=== PATIENT | female | born 1960 | race African-American/Black ===

== ENCOUNTER 2018-06-25 05:17 | Inpatient (IN) | payer OTHER ==
[~2018-06-25] VITALS: Ht 167.6 cm; Wt 112.5 kg
[2018-06-25] VITALS (11 sets, daily range): BP systolic 102–149; BP diastolic 64–86
[~2018-06-25 05:17] MED LIST: ADVAIR 100-501 EACH INH; LIPITOR20 MG ORAL; VISTARIL10 MG ORAL
[2018-06-25] MEDS ORDERED: Bacitracin 50000 Units Vial ONE (07:03)
[2018-06-25] MEDS ORDERED: NeoSporin Gu Irrig 1ml Amp IRRIG ONE (07:03)
--- NOTE | 2018-06-25 07:07 | Pre-Procedure Note/Attestation ---
Pre-Procedure Note/Attestation Complete Prior to Procedure Planned Procedure: right Procedure Narrative: End Stage Degenerative Joint Disease, Right Knee For Right Knee Re-surface Indications for Procedure Pre-Operative Diagnosis: End Stage Degenerative Joint Disease, Right Knee Attestation I attest that I discussed the nature of the procedure; its benefits; risks and complications; and alternatives (and the risks and benefits of such alternatives ), prior to the procedure, with the patient (or the patient's legal automotive leasing sales representative). I attest that, if there was a reasonable possibility of needing a blood transfusion, the patient (or the patient's legal automotive leasing sales representative) was given the [facility] standardized written summary, pursuant to the Dax Katheryn Blood Safety Act ([place] Health and Safety Code # 1645, as amended). I attest that I re-evaluated the patient just prior to the surgery and that there has been no change in the patient's H&P, except as documented below: Raman Cordova Jun 25, 2018 07:07
[2018-06-25] MEDS ORDERED: Midazolam 2mg/2ml Inj ONE (07:15)
[2018-06-25] MEDS ORDERED: fentaNYL 100 mcg/2 mL IV ONE (07:16)
[2018-06-25] MEDS ORDERED: Lidocaine 1% MPF 10mg/ml 5ml ONE (07:18)
[2018-06-25] MEDS ORDERED: Propofol 200mg/20ml IV ONE (07:18)
[2018-06-25] MEDS ORDERED: Sodium Chloride 10ml vial INJ ONE (07:18)
[2018-06-25] MEDS ORDERED: Sterile Water For Irrig 2000ml IRRIG ONE (07:30)
[2018-06-25] MEDS ORDERED: LR 1000ml ONE (07:30)
[2018-06-25] MEDS ORDERED: Sterile Water Irrig 1000ml IRRIG ONE (07:30)
[2018-06-25] MEDS ORDERED: NS Irrig 1000ml ONE (07:30)
[2018-06-25] MEDS ORDERED: ePHEDrine 50mg/ml Inj ONE (07:52)
[2018-06-25] MEDS ORDERED: LR 1000ml 1,000 ML IVLG SCH (08:18)
[2018-06-25] MEDS ORDERED: DiphenhydrAMINE 50mg/ml Inj IVP PRN (08:30)
[2018-06-25] MEDS ORDERED: HYDROmorphone 1mg/ml Carpuject IVP PRN (08:30)
[2018-06-25] MEDS ORDERED: Meperidine 50mg/ml Inj(FOR RIGORS ONLY) IVP PRN (08:30)
[2018-06-25] MEDS ORDERED: LORazepam Inj 2mg/ml 1ml IV PRN (08:30)
--- NOTE | 2018-06-25 08:32 | Anethesia Preoperative Eval ---
Anesthesia Pre-op PMH/ROS General Date of Evaluation: Jun 25, 2018 Time of Evaluation: 07:20 Anesthesiologist: Alpesh ASA Score: ASA 3 Mallampati Score Class I : Soft palate, uvula, fauces, pillars visible Class II: Soft palate, uvula, fauces visible Class III: Soft palate, base of uvula visible Class IV: Only hard plate visible Mallampati Classification: Class II Surgeon: Zachery Diagnosis: Degenerative Joint Disease Surgical Procedure: Right total knee arthroplasty Family History: no anesthesia problems Allergies: Coded Allergies: CITRIC ACID (Verified Allergy, Severe, 06/20/18) ITCHING ASPIRIN (Verified Adverse Reaction, Severe, 06/25/18) CANNOT TAKE ASPIRIN DUE TO BARIATRIC SLEEVE SURGERY Medications: see eMAR Patient NPO?: Yes NPO Date: Jun 24, 2018 NPO Time: 2029 Past Medical History Cardiovascular: Denies: HTN, CAD, OR, valve dz, arrhythmia, other Pulmonary: Reports: asthma; Denies: COPD, PAN, other Gastrointestinal/Genitourinary: Denies: GERD, CRI, ESRD, other Neurologic/Psychiatric: Reports: depression/anxiety - Panic attacks; Denies: dementia, CVA, TIA, other Endocrine: Denies: DM, hypothyroidism, steroids, other HEENT: Denies: cataract (L), cataract (R), glaucoma, TELLER (L), TELLER (R), other Hematology/Immune: Denies: anemia, DVT, bleeding disorder, other Musculoskeletal/Integumentary: Reports: DJD Other: obesity PMH Narrative: Asthma, obesity, DJD, anxiety, panic attacks, hypercholesterolemia PSxH Narrative: Carpal tunnel release, knee scope, Gastric band, umbilical herniorrhaphy Anesthesia Pre-op Phys. Exam Physician Exam Last Vital Signs Date Time Temp Pulse Resp B/P (MAP) Pulse Ox O2 Delivery O2 Flow Rate FiO2 06/25/18 06:06 97.7 65 20 129/81 (97) 98 06/25/18 06:02 Room Air Constitutional: NAD Neurologic: CN 2-12 intact Cardiovascular: RRR, no M/R/G Respiratory: CTA Gastrointestinal: S/NT/ND Airway Exam Mallampati Score: Class II MO: full ROM: full Teeth: intact Anesthesia Pre-op A/P Labs WNL Urine Test Test 06/25/18 05:35 Urine HCG, Qualitative Negative (NEGATIVE) Studies Pre-op Studies: EKG - NSR Risk Assessment & Plan Assessment: Class 3 obese, asthmatic female for right TKA. Plan: GA, LMA. Discussed regional (spinal) anesthesia vs GA. Patient has decided that GA is her preference. Status Change Before Surgery: No Pre-Antibiotics Drug: Ancef 2 gm Given Within 1 Hr of Incision: Yes Time Given: 07:45 Dax Betts MD Jun 25, 2018 08:32
--- NOTE | 2018-06-25 08:33 | Immediate Post-Op Evaluation ---
Immediate Post-Op Evalulation Immediate Post-Op Evalulation Procedure: Right total knee arthroplasty Date of Evaluation: Jun 25, 2018 Time of Evaluation: 10:25 IV Fluids: 1750 Estimated Blood Loss: 50 Urinary Output: 50 Blood Pressure Systolic: 141 Blood Pressure Diastolic: 72 Pulse Rate: 104 Respiratory Rate: 22 O2 Sat by Pulse Oximetry: 99 Temperature (Fahrenheit): 97.6 Pain Score (1-10): 0 Nausea: No Vomiting: No Complications No complication Patient Status: reacts, patent, none Hydration Status: adequate Drug: Ancef 2 gm Given Within 1 Hr of Incision: Yes Time Given: 07:45 Dax Betts MD Jun 25, 2018 08:33
[2018-06-25] MEDS ORDERED: Naloxone 0.4mg/ml Inj ONE (10:08)
[2018-06-25] MEDS ORDERED: HYDROmorphone 1mg/ml Carpuject SUBQ PRN (10:15)
[2018-06-25] MEDS ORDERED: HYDROcodone/Acetamin 7.5/325 tab ORAL PRN (10:15)
[2018-06-25] MEDS ORDERED: Norco 5mg/325mg tab ORAL PRN (10:15)
--- NOTE | 2018-06-25 10:19 | Operative Note - PDOC ---
Operative Note Operative Note Chief Complaint: Right Knee Pain Pre-op Diagnosis: End Stage Degenerative Joint Disease, Right Knee Procedure: Right Total Knee Resurface Post-op Diagnosis: same as pre-op Operative Findings: consistent w/pre-op dx studies Surgeon: Zachery Aviation Manager: LUCIE Cordova Anesthesiologist: Alpesh Anesthesia: general Specimen: yes Complications: none Condition: stable Estimated Blood Loss: minimal Drains: hemovac Tourniquet time: 83 - min Implant(s) used?: Yes - Buster Natural Knee Raman Cordova Jun 25, 2018 10:19
[2018-06-25] MEDS ORDERED: Rate Change PCA 1 Each MISC PRN (10:30)
[2018-06-25] MEDS ORDERED: Naloxone 0.4mg/ml Inj IVP PRN (10:30)
[2018-06-25] MEDS ORDERED: LORazepam 1mg tab ORAL PRN (10:30)
[2018-06-25] MEDS ORDERED: PCA HYDROmorphone 1mg/ml 30 ML IV PRN (10:30)
--- NOTE | 2018-06-25 11:19 | Diagnostic Imaging Report ---
Indications: Postoperative satisfactory post total knee arthroplasty for knee pain Technique: Two views of the right knee Comparison: None Findings: Two postoperative views of the right knee demonstrate total knee arthroplasty, good anatomic alignment of the prosthesis. There is a surgical drain in place. There is postsurgical soft tissue air. Overlying skin blanca. Impression: Postoperative right knee, no unusual features.
--- NOTE | 2018-06-25 13:51 | General Progress Note ---
Assessment/Plan Assessment/Plan End Stage Degenerative Joint Disease, Right Knee Right Knee Re-surface hypertension PLAN 1. incentive spirometry 2. Lovenox 3. PT evaluation and therapy 4. Hydration 5. Pain management 6. discharge once stable with outpatient follow up Subjective Allergies: Coded Allergies: CITRIC ACID (Verified Allergy, Severe, 06/20/18) ITCHING ASPIRIN (Verified Adverse Reaction, Severe, 06/25/18) CANNOT TAKE ASPIRIN DUE TO BARIATRIC SLEEVE SURGERY Subjective asked to follow post op Objective Last 24 Hour Vital Signs Date Time Temp Pulse Resp B/P (MAP) Pulse Ox O2 Delivery O2 Flow Rate FiO2 06/25/18 11:26 97.5 84 18 115/67 99 Nasal Cannula 3 06/25/18 11:08 97.5 85 18 126/85 99 Nasal Cannula 3 06/25/18 11:02 18 06/25/18 10:57 85 18 121/80 99 Nasal Cannula 3 06/25/18 10:47 18 06/25/18 10:39 95 18 122/75 99 Nasal Cannula 3 06/25/18 10:32 18 06/25/18 10:30 95 18 132/73 99 Simple Mask 8 06/25/18 10:25 96 18 139/86 99 Simple Mask 8 06/25/18 10:21 104 22 99 06/25/18 10:20 102 18 141/72 99 Simple Mask 8 06/25/18 10:15 97.6 108 18 149/74 99 Simple Mask 8 06/25/18 06:06 97.7 65 20 129/81 (97) 98 06/25/18 06:02 Room Air Laboratory Tests 06/25/18 05:35: Urine HCG, Qualitative Negative Height (Feet): 5 Height (Inches): 6.00 Weight (Pounds): 235 Objective WDWN NAD clear breath sounds bilaterally without rhonchi or wheeze [id number] without MRG NABS nontender no HSM no CCE nonfocal Jacob Hinton MD Jun 25, 2018 13:51
[2018-06-25] MEDS: D5 1/2NS w/KCl 20mEq 1,000 ML IV SCH (15:05)
[2018-06-25] MEDS: ceFAZolin sod 1 GM in D5W 55 ML IV SCH ×2 (15:05→23:13)
[2018-06-25] MEDS: Docusate 100mg cap ORAL SCH ×2 (15:05→17:54)
[2018-06-25] MEDS ORDERED: PCA Education Pamphlet MISC ONE (16:00)
--- NOTE | 2018-06-25 16:00 | Operative Note - Dictated ---
DATE OF OPERATION: 06/25/2018 SURGEON: Raman Bingham M.D. MANUFACTURING MACHINE OPERATOR: Vinny Zepeda ANESTHESIA: General endotracheal. ANESTHESIOLOGIST: Dr. Betts. 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 POSTOPERATIVE DIAGNOSIS: Tricompartmental traumatic arthritis, right knee with significant valgus and external rotational deformity lacking 10 degrees of flexion and 10 degrees of extension. OPERATIVE PROCEDURE: Total knee resurfacing arthroplasty using a Natural-Knee with an ingrowth size 2 femoral component and a size 2 tibial base plate with a congruent 9 mm polyethylene insert. Patellar resurfacing was with a 7 mm all polyethylene size 0 patellar component with cement. The patient also had a lateral capsular and ligamentous release and rebalancing with patella realignment. DESCRIPTION OF OPERATIVE PROCEDURE: The patient was prepped and draped supine on the operating table after induction of satisfactory general anesthesia. The leg was positioned so that the hip could not externally rotate because of a lateral thigh ulcer. A support was placed on the table to facilitate maintenance of the knee in flexion. During the performance of the procedure, the pelvis was derotated using a 5-pound sandbag under the right hip. A medial parapatellar incision was made beginning from the quads expanse coursing along the medial patella along the medial border of the infrapatellar ligament and tibial tuberosity. Incision was carried down through skin and subcutaneous tissue exposing the extensor apparatus. A medial parapatellar incision was made. The incision was carried in the capsule along the medial margin of the infrapatellar ligament to the tibial tuberosity superiorly. The quads was split centrally. A lateral release was done so that the patella could be turned 180 degrees so that its articular surface faced the operating field. The posteromedial capsular ligaments were released and recess using a periosteal elevator. The lateral collateral ligament was completely freed from the lateral femoral epicondyle, which was deformed with a defect laterally and posteriorly. The iliotibial band was also released. Synovium was removed from the patella ligament and the posterior periarticular surfaces to allow definition of the margins of the patella. A patellar cutting jig was inserted to remove a minimal amount of articular surface and cancellous bone. The cut surface was planed and then anchoring holes were made for a size 07 mm all-polyethylene patella. The knee was then flexed and the remnants of the anterior cruciate ligament were removed. The femoral medullary jig was then inserted and the distal femoral medullary canal was drilled. An outrigger was used to place the distal femoral extension jig and to normalize rotation. The weightbearing axis was reproduced as was seen on the preoperative x-rays. A nickel cut was taken from the distal surface of the femur. The femur was then sized and anterior, posterior, and chamfer cuts were made for a size 2 femur. The trial femoral component fit well with good contact on all surfaces. The tibia was then subluxed forward and remnants of the medial and lateral meniscus were removed as well as release of the posterior cruciate ligament to the tibial weightbearing surface. The main attachment was left attached to the posterior tibia. The tibial surface was then incised and the tibial alignment jig was placed over the anterior tibia secured at the ankle. The tibial cut was measured for depth, slope, and rotation. When all three had been determined, the final set pins were placed and the proximal tibia was divided over a cutting block. A size 2 tibial base plate was templated. An alignment juan david was used to check alignment and rotation. The final holes were placed for the anchoring screws in the tibial base plate and then a trial reduction was done after the central cruciate punch was placed. A size 2 base plate with a 9 mm congruent polyethylene reproduced full extension of the knee with physiologic valgus, smooth tracking, and good stability to 95 to 100 degrees. At that point, the tibial base plate was implanted with 2 APR compression screws, 40 mm. The polyethylene insert was tapped into place. There was no gap. The femoral component was then reduced and the position, alignment, and stability were again checked. There was full extension with flexion of 95 degrees. There was good collateral stability and good tracking. The patella was then cemented into place with a size 0. All excess cement was removed as the cement cured. The tourniquet was released and bleeders were coagulated along the lateral release site and along the medial capsular incision. The medial capsule was closed with interrupted sutures of #1 Vicryl. The lateral release site was left open and a medium Hemovac without suction was placed in the defect with lateral release. The subcutaneous tissue and skin were closed in separate layers. Blood loss was estimated at 100 mL. The patient was placed in a bulky compression dressing and then returned to recovery room in good condition. Raman Bingham M.D. DR: Shy JOB#: [id number] CC:
[2018-06-25] MEDS: Docusate Sod/Senna tab ORAL SCH (17:52)
[2018-06-25] MEDS: Acetaminophen 500mg (ES) tab ORAL SCH (17:53)
[2018-06-25] MEDS: Advair 100/50 Inhaler - 14 dose INH SCH ×2 (18:00→20:48)
[2018-06-25] MEDS: PCA shift volume MISC SCH (19:00)
[2018-06-25] MEDS: Atorvastatin 20mg tab ORAL SCH (20:24)
[2018-06-26] VITALS (7 sets, daily range): BP systolic 96–146; BP diastolic 50–65
[2018-06-26] MEDS: D5 1/2NS w/KCl 20mEq 1,000 ML IV SCH ×2 (03:34→17:40)
[2018-06-26] MEDS: ceFAZolin sod 1 GM in D5W 55 ML IV SCH ×3 (06:52→22:52)
[2018-06-26] MEDS: PCA shift volume MISC SCH ×2 (07:12→19:00)
--- NOTE | 2018-06-26 07:50 | 48 Hour Post Anesthesia Eval ---
Post Anesthesia Evaluation Procedure: Right total knee arthroplasty Date of Evaluation: Jun 26, 2018 Time of Evaluation: 07:36 Blood Pressure Systolic: 97 0: 50 Pulse Rate: 84 Respiratory Rate: 18 Temperature (Fahrenheit): 98.5 O2 Sat by Pulse Oximetry: 95 Airway: patent Nausea: No Vomiting: No Pain Intensity: 3 Hydration Status: adequate Cardiopulmonary Status: Stable Mental Status/LOC: patient returned to baseline Follow-up Care/Observations: 0 Post-Anesthesia Complications: 0 Follow-up care needed: N/A Tony Richard MD Jun 26, 2018 07:50
[2018-06-26 08:09] LABS: BASOPHILS % (AUTO) 0.3 % (0.0-2.0); HEMATOCRIT 28.1 % (37.0-47.0); LYMPHOCYTES % (AUTO) 12.9 % (20.0-45.0); MEAN CORPUSCULAR VOLUME 84 FL (80-99); MONOCYTES % (AUTO) 5.7 % (1.0-10.0); NEUTROPHILS % (AUTO) 81.1 % (45.0-75.0); PLATELET COUNT 200 K/UL (150-450); RED BLOOD COUNT 3.34 M/UL (4.20-5.40); RED CELL DISTRIBUTION WIDTH 12.6 % (11.6-14.8); WHITE BLOOD COUNT 7.7 K/UL (4.8-10.8)
[2018-06-26] MEDS: Docusate 100mg cap ORAL SCH ×4 (09:00→17:55)
[2018-06-26] MEDS: Acetaminophen 500mg (ES) tab ORAL SCH ×5 (09:00→17:56)
[2018-06-26] MEDS: Docusate Sod/Senna tab ORAL SCH ×3 (09:00→17:55)
--- NOTE | 2018-06-26 10:06 | General Surgery Progress Note ---
General Surgery-Progress Note Subjective Procedure Performed Right Total Knee Resurface Objective Last 24 Hour Vital Signs Date Time Temp Pulse Resp B/P (MAP) Pulse Ox O2 Delivery O2 Flow Rate FiO2 06/26/18 09:18 98.9 86 16 96/60 (72) 90 06/26/18 09:17 Room Air 06/26/18 09:17 Room Air 06/26/18 08:27 Room Air Room Air 06/26/18 08:00 18 06/26/18 08:00 98.9 86 16 96/60 (72) 90 06/26/18 07:50 84 18 95 06/26/18 05:40 98.5 84 18 97/50 (66) 95 06/26/18 04:00 18 06/26/18 00:00 18 06/26/18 00:00 97.9 87 17 110/65 (80) 95 06/25/18 21:00 Room Air Room Air 06/25/18 20:47 Room Air 21 06/25/18 20:44 76 20 97 Room Air 21 06/25/18 20:00 18 06/25/18 20:00 98.0 73 18 140/79 (99) 98 06/25/18 20:00 98.0 73 18 140/79 (99) 98 06/25/18 18:23 97.4 06/25/18 16:00 97.4 77 16 102/64 (77) 96 06/25/18 11:26 97.5 84 18 115/67 99 Nasal Cannula 3 06/25/18 11:08 97.5 85 18 126/85 99 Nasal Cannula 3 06/25/18 11:02 97.5 06/25/18 11:02 97.5 06/25/18 11:02 18 06/25/18 10:57 85 18 121/80 99 Nasal Cannula 3 06/25/18 10:47 18 06/25/18 10:39 95 18 122/75 99 Nasal Cannula 3 06/25/18 10:32 18 06/25/18 10:30 95 18 132/73 99 Simple Mask 8 06/25/18 10:25 96 18 139/86 99 Simple Mask 8 06/25/18 10:21 104 22 99 06/25/18 10:20 102 18 141/72 99 Simple Mask 8 06/25/18 10:15 97.6 108 18 149/74 99 Simple Mask 8 I&O Intake and Output 06/25/18 06/26/18 19:00 07:00 Intake Total 2175 ml 980 ml Output Total 100 ml 570 ml Balance 2075 ml 410 ml Intake Oral 100 ml IV Total 2175 ml 880 ml Output Urine Total 50 ml 450 ml Drainage Total 120 ml Estimated Blood Loss 50 ml Dressing: dry Wound: clean Drains: hemovac Laboratory Tests Test 06/26/18 07:20 White Blood Count 7.7 K/UL (4.8-10.8) Red Blood Count 3.34 M/UL (4.20-5.40) L Hemoglobin 9.0 G/DL (12.0-16.0) L Hematocrit 28.1 % (37.0-47.0) L Mean Corpuscular Volume 84 FL (80-99) Mean Corpuscular Hemoglobin 27.0 PG (27.0-31.0) Mean Corpuscular Hemoglobin Concent 32.1 G/DL (32.0-36.0) Red Cell Distribution Width 12.6 % (11.6-14.8) Platelet Count 200 K/UL (150-450) Mean Platelet Volume 7.1 FL (6.5-10.1) Neutrophils (%) (Auto) 81.1 % (45.0-75.0) H Lymphocytes (%) (Auto) 12.9 % (20.0-45.0) L Monocytes (%) (Auto) 5.7 % (1.0-10.0) Eosinophils (%) (Auto) 0.0 % (0.0-3.0) Basophils (%) (Auto) 0.3 % (0.0-2.0) Troponin I 0.000 ng/mL (0.000-0.056) Imaging Post Op x-ray Right Knee: good alignment of implants Additional Comments Drain output 120 cc overnight. PT / OT in progress. Raman Greenwood Jun 26, 2018 10:06
[2018-06-26] MEDS: Enoxaparin 40mg Inj SUBQ SCH (11:06)
--- NOTE | 2018-06-26 16:01 | General Progress Note ---
Assessment/Plan Assessment/Plan End Stage Degenerative Joint Disease, Right Knee Right Knee Re-surface hypertension PLAN 1. incentive spirometry 2. Lovenox 3. PT evaluation and therapy 4. ECG and troponin 5. Pain management 6. discharge once stable with outpatient follow up Subjective Allergies: Coded Allergies: CITRIC ACID (Verified Allergy, Severe, 06/20/18) ITCHING ASPIRIN (Verified Adverse Reaction, Severe, 06/25/18) CANNOT TAKE ASPIRIN DUE TO BARIATRIC SLEEVE SURGERY Subjective had chest pain Objective Last 24 Hour Vital Signs Date Time Temp Pulse Resp B/P (MAP) Pulse Ox O2 Delivery O2 Flow Rate FiO2 06/26/18 14:47 99.3 06/26/18 12:00 99.3 85 18 119/65 (83) 90 06/26/18 12:00 18 06/26/18 10:10 Room Air Room Air 06/26/18 09:18 98.9 86 16 96/60 (72) 90 06/26/18 09:17 Room Air 06/26/18 09:17 Room Air 06/26/18 08:27 Room Air Room Air 06/26/18 08:00 18 06/26/18 08:00 98.9 86 16 96/60 (72) 90 06/26/18 07:50 84 18 95 06/26/18 05:40 98.5 84 18 97/50 (66) 95 06/26/18 04:00 18 06/26/18 00:00 18 06/26/18 00:00 97.9 87 17 110/65 (80) 95 06/25/18 21:00 Room Air Room Air 06/25/18 20:47 Room Air 21 06/25/18 20:44 76 20 97 Room Air 21 06/25/18 20:00 18 06/25/18 20:00 98.0 73 18 140/79 (99) 98 06/25/18 20:00 98.0 73 18 140/79 (99) 98 Intake and Output 06/25/18 06/26/18 19:00 07:00 Intake Total 2175 ml 980 ml Output Total 100 ml 570 ml Balance 2075 ml 410 ml Intake Oral 100 ml IV Total 2175 ml 880 ml Output Urine Total 50 ml 450 ml Drainage Total 120 ml Estimated Blood Loss 50 ml Laboratory Tests 06/26/18 07:20: White Blood Count 7.7, Red Blood Count 3.34L, Hemoglobin 9.0L, Hematocrit 28.1L , Mean Corpuscular Volume 84, Mean Corpuscular Hemoglobin 27.0, Mean Corpuscular Hemoglobin Concent 32.1, Red Cell Distribution Width 12.6, Platelet Count 200, Mean Platelet Volume 7.1, Neutrophils (%) (Auto) 81.1H, Lymphocytes ( %) (Auto) 12.9L, Monocytes (%) (Auto) 5.7, Eosinophils (%) (Auto) 0.0, Basophils (%) (Auto) 0.3, Troponin I 0.000 Height (Feet): 5 Height (Inches): 6.00 Weight (Pounds): 235 Objective WDWN NAD clear breath sounds bilaterally without rhonchi or wheeze [id number] without MRG NABS nontender no HSM no CCE nonfocal Jacob Hinton MD Jun 26, 2018 16:01
[2018-06-26] MEDS: Advair 100/50 Inhaler - 14 dose INH SCH (18:00)
[2018-06-26] MEDS: Atorvastatin 20mg tab ORAL SCH (20:31)
[2018-06-27] VITALS: BP 125/76
[2018-06-27 04:00] VITALS: BP 133/79
[2018-06-27 06:27] LABS: BASOPHILS % (AUTO) 0.4 % (0.0-2.0); EOSINOPHILS % (AUTO) 0.1 % (0.0-3.0); HEMOGLOBIN 8.3 G/DL (12.0-16.0); LYMPHOCYTES % (AUTO) 19.4 % (20.0-45.0); MEAN CORPUSCULAR VOLUME 84 FL (80-99); MONOCYTES % (AUTO) 9.7 % (1.0-10.0); NEUTROPHILS % (AUTO) 70.4 % (45.0-75.0); PLATELET COUNT 196 K/UL (150-450); RED CELL DISTRIBUTION WIDTH 12.8 % (11.6-14.8); WHITE BLOOD COUNT 7.1 K/UL (4.8-10.8)
[2018-06-27] MEDS: ceFAZolin sod 1 GM in D5W 55 ML IV SCH ×2 (06:33→15:28)
[2018-06-27] MEDS: D5 1/2NS w/KCl 20mEq 1,000 ML IV SCH ×2 (06:33→20:33)
[2018-06-27 06:40] LABS: ANION GAP 6 mmol/L (5-15); BLOOD UREA NITROGEN 8 mg/dL (7-18); CALCIUM 8.3 MG/DL (8.5-10.1); CARBON DIOXIDE 29 MMOL/L (21-32); CHLORIDE 104 MMOL/L (98-107); CREATININE 0.9 MG/DL (0.55-1.30); POTASSIUM 4.1 MMOL/L (3.5-5.1); SODIUM 139 MMOL/L (136-145)
[2018-06-27] MEDS: PCA shift volume MISC SCH ×2 (07:13→19:00)
[2018-06-27 08:00] VITALS: BP 126/80
[2018-06-27] MEDS: Docusate Sod/Senna tab ORAL SCH ×2 (08:37→17:24)
[2018-06-27] MEDS: Docusate 100mg cap ORAL SCH ×3 (08:37→17:24)
[2018-06-27] MEDS: Acetaminophen 500mg (ES) tab ORAL SCH ×3 (08:37→17:25)
[2018-06-27] MEDS: Enoxaparin 40mg Inj SUBQ SCH (08:40)
[2018-06-27] MEDS: Advair 100/50 Inhaler - 14 dose INH SCH ×2 (09:00→18:00)
[2018-06-27] MEDS ORDERED: Naloxone 0.4mg/ml Inj IVP PRN (09:24)
[2018-06-27] MEDS ORDERED: PCA HYDROmorphone 1mg/ml 30 ML IV PRN (09:26)
[2018-06-27] MEDS ORDERED: Rate Change PCA 1 Each MISC PRN (09:30)
[2018-06-27] MEDS ORDERED: LORazepam 1mg tab ORAL PRN (10:30)
--- NOTE | 2018-06-27 11:28 | General Progress Note ---
Assessment/Plan Assessment/Plan End Stage Degenerative Joint Disease, Right Knee Right Knee Re-surface hypertension PLAN 1. incentive spirometry 2. Lovenox 3. PT evaluation and therapy 4. ECG and troponin reviewed 5. Pain management 6. discharge once stable with outpatient follow up Subjective Allergies: Coded Allergies: CITRIC ACID (Verified Allergy, Severe, 06/20/18) ITCHING ASPIRIN (Verified Adverse Reaction, Severe, 06/25/18) CANNOT TAKE ASPIRIN DUE TO BARIATRIC SLEEVE SURGERY Subjective no further chest pain Objective Last 24 Hour Vital Signs Date Time Temp Pulse Resp B/P (MAP) Pulse Ox O2 Delivery O2 Flow Rate FiO2 06/27/18 10:44 99.4 06/27/18 10:14 18 06/27/18 10:14 18 06/27/18 09:51 99.4 06/27/18 09:28 99.4 06/27/18 09:12 Room Air Room Air 06/27/18 09:11 Room Air 06/27/18 09:11 Room Air 06/27/18 08:18 98.7 06/27/18 08:00 18 06/27/18 08:00 100.3 112 21 126/80 (95) 93 06/27/18 04:00 98.7 106 18 133/79 (97) 96 06/27/18 04:00 18 06/27/18 00:00 18 06/27/18 00:00 98.9 100 18 125/76 (92) 95 06/26/18 20:21 Room Air Room Air 06/26/18 20:20 Room Air 21 06/26/18 20:20 Room Air 21 06/26/18 20:00 99.3 98 17 146/55 (85) 96 06/26/18 20:00 17 06/26/18 16:00 99.2 86 18 115/63 (80) 97 06/26/18 16:00 18 06/26/18 14:47 99.3 06/26/18 12:00 99.3 85 18 119/65 (83) 90 06/26/18 12:00 18 Intake and Output 06/26/18 06/27/18 18:59 06:59 Intake Total 1572.5 ml 1380 ml Output Total 1450 ml 135 ml Balance 122.5 ml 1245 ml Intake Oral 675 ml 480 ml IV Total 897.5 ml 900 ml Output Urine Total 1150 ml Drainage Total 300 ml 135 ml # Voids 3 3 Laboratory Tests 06/27/18 05:20: White Blood Count 7.1, Red Blood Count 3.10L, Hemoglobin 8.3L, Hematocrit 26.0L , Mean Corpuscular Volume 84, Mean Corpuscular Hemoglobin 26.8L, Mean Corpuscular Hemoglobin Concent 32.0, Red Cell Distribution Width 12.8, Platelet Count 196, Mean Platelet Volume 7.8, Neutrophils (%) (Auto) 70.4, Lymphocytes (% ) (Auto) 19.4L, Monocytes (%) (Auto) 9.7, Eosinophils (%) (Auto) 0.1, Basophils (%) (Auto) 0.4, Sodium Level 139, Potassium Level 4.1, Chloride Level 104, Carbon Dioxide Level 29, Anion Gap 6, Blood Urea Nitrogen 8, Creatinine 0.9, Estimat Glomerular Filtration Rate > 60, Glucose Level 116H, Calcium Level 8.3L Height (Feet): 5 Height (Inches): 6.00 Weight (Pounds): 248 Objective WDWN NAD clear breath sounds bilaterally without rhonchi or wheeze [id number] without MRG NABS nontender no HSM no CCE nonfocal Jacob Hinton MD Jun 27, 2018 11:28
[2018-06-27 12:00] VITALS: BP 104/76
[2018-06-27] MEDS: Milk of Magnesia 30ml Ud ORAL PRN (12:27)
--- NOTE | 2018-06-27 12:58 | General Surgery Progress Note ---
General Surgery-Progress Note Subjective Procedure Performed Right Total Knee Resurface Symptoms: improved Objective Last 24 Hour Vital Signs Date Time Temp Pulse Resp B/P (MAP) Pulse Ox O2 Delivery O2 Flow Rate FiO2 06/27/18 12:00 98.4 98 19 104/76 (85) 06/27/18 12:00 19 06/27/18 10:44 99.4 06/27/18 10:14 18 06/27/18 10:14 18 06/27/18 09:51 99.4 06/27/18 09:28 99.4 06/27/18 09:12 Room Air Room Air 06/27/18 09:11 Room Air 06/27/18 09:11 Room Air 06/27/18 08:18 98.7 06/27/18 08:00 18 06/27/18 08:00 100.3 112 21 126/80 (95) 93 06/27/18 04:00 98.7 106 18 133/79 (97) 96 06/27/18 04:00 18 06/27/18 00:00 18 06/27/18 00:00 98.9 100 18 125/76 (92) 95 06/26/18 20:21 Room Air Room Air 06/26/18 20:20 Room Air 21 06/26/18 20:20 Room Air 21 06/26/18 20:00 99.3 98 17 146/55 (85) 96 06/26/18 20:00 17 06/26/18 16:00 99.2 86 18 115/63 (80) 97 06/26/18 16:00 18 06/26/18 14:47 99.3 I&O Intake and Output 06/26/18 06/27/18 19:00 07:00 Intake Total 1572.5 ml 1380 ml Output Total 1450 ml 135 ml Balance 122.5 ml 1245 ml Intake Oral 675 ml 480 ml IV Total 897.5 ml 900 ml Output Urine Total 1150 ml Drainage Total 300 ml 135 ml # Voids 3 3 Dressing: dry Wound: clean Drains: hemovac Laboratory Tests Test 06/27/18 05:20 White Blood Count 7.1 K/UL (4.8-10.8) Red Blood Count 3.10 M/UL (4.20-5.40) L Hemoglobin 8.3 G/DL (12.0-16.0) L Hematocrit 26.0 % (37.0-47.0) L Mean Corpuscular Volume 84 FL (80-99) Mean Corpuscular Hemoglobin 26.8 PG (27.0-31.0) L Mean Corpuscular Hemoglobin Concent 32.0 G/DL (32.0-36.0) Red Cell Distribution Width 12.8 % (11.6-14.8) Platelet Count 196 K/UL (150-450) Mean Platelet Volume 7.8 FL (6.5-10.1) Neutrophils (%) (Auto) 70.4 % (45.0-75.0) Lymphocytes (%) (Auto) 19.4 % (20.0-45.0) L Monocytes (%) (Auto) 9.7 % (1.0-10.0) Eosinophils (%) (Auto) 0.1 % (0.0-3.0) Basophils (%) (Auto) 0.4 % (0.0-2.0) Sodium Level 139 MMOL/L (136-145) Potassium Level 4.1 MMOL/L (3.5-5.1) Chloride Level 104 MMOL/L (98-107) Carbon Dioxide Level 29 MMOL/L (21-32) Anion Gap 6 mmol/L (5-15) Blood Urea Nitrogen 8 mg/dL (7-18) Creatinine 0.9 MG/DL (0.55-1.30) Estimat Glomerular Filtration Rate > 60 mL/min (>60) Glucose Level 116 MG/DL (74-106) H Calcium Level 8.3 MG/DL (8.5-10.1) L Additional Comments Patient up with PT today. Still high drain output. Dr. Hinton following. 5/5 strength in right leg. Raman Cordova Jun 27, 2018 12:58
[2018-06-27 16:00] VITALS: BP 108/77
--- NOTE | 2018-06-27 17:48 | Cardiology Report ---
APPROVED REPORT EKG Measurement Heart [id number] Normal sinus rhythm Normal ECG
[2018-06-27 20:00] VITALS: BP 130/76
[2018-06-27] MEDS: Atorvastatin 20mg tab ORAL SCH (20:53)
[2018-06-28] VITALS: BP 102/66
[2018-06-28] MEDS: ceFAZolin sod 1 GM in D5W 55 ML IV SCH ×2 (00:02→07:30)
[2018-06-28 04:00] VITALS: BP 112/66
[2018-06-28] MEDS: PCA shift volume MISC SCH (07:31)
[2018-06-28 08:00] VITALS: BP 137/67
[2018-06-28] MEDS: Docusate Sod/Senna tab ORAL SCH ×2 (08:50→18:00)
[2018-06-28] MEDS: Docusate 100mg cap ORAL SCH ×3 (08:53→18:00)
[2018-06-28] MEDS: Enoxaparin 40mg Inj SUBQ SCH (08:53)
[2018-06-28] MEDS: Acetaminophen 500mg (ES) tab ORAL SCH (09:00)
[2018-06-28] MEDS: Advair 100/50 Inhaler - 14 dose INH SCH ×2 (09:00→18:00)
--- NOTE | 2018-06-28 09:20 | General Progress Note ---
Assessment/Plan Assessment/Plan End Stage Degenerative Joint Disease, Right Knee Right Knee Re-surface hypertension PLAN 1. incentive spirometry 2. Lovenox 3. PT evaluation and therapy 4. ECG and troponin reviewed 5. Pain management 6. discharge once stable with outpatient follow up Subjective Allergies: Coded Allergies: CITRIC ACID (Verified Allergy, Severe, 06/20/18) ITCHING ASPIRIN (Verified Adverse Reaction, Severe, 06/25/18) CANNOT TAKE ASPIRIN DUE TO BARIATRIC SLEEVE SURGERY Subjective discussed dc planning Objective Last 24 Hour Vital Signs Date Time Temp Pulse Resp B/P (MAP) Pulse Ox O2 Delivery O2 Flow Rate FiO2 06/28/18 09:09 Room Air 21 06/28/18 09:09 Room Air 21 06/28/18 08:00 99.7 108 20 137/67 (90) 98 06/28/18 04:00 98.9 98 20 112/66 (81) 98 06/28/18 04:00 20 06/28/18 00:00 20 06/28/18 00:00 98.3 99 20 102/66 (78) 97 06/27/18 21:00 Room Air 06/27/18 20:27 Room Air 21 06/27/18 20:27 Room Air 21 06/27/18 20:00 20 06/27/18 20:00 99.1 106 20 130/76 (94) 96 06/27/18 17:55 98.6 06/27/18 16:00 20 06/27/18 16:00 98.6 98 20 108/77 (87) 95 06/27/18 12:00 98.4 98 19 104/76 (85) 06/27/18 12:00 19 06/27/18 10:44 99.4 06/27/18 10:14 18 06/27/18 10:14 18 06/27/18 09:51 99.4 06/27/18 09:28 99.4 Intake and Output 06/27/18 06/28/18 18:59 06:59 Intake Total 1290 ml 392.5 ml Output Total 80 ml 55 ml Balance 1210 ml 337.5 ml Intake Oral 635 ml IV Total 655 ml 392.5 ml Drainage Total 80 ml 55 ml # Voids 2 3 # Bowel Movements 2 Height (Feet): 5 Height (Inches): 6.00 Weight (Pounds): 248 Objective WDWN NAD clear breath sounds bilaterally without rhonchi or wheeze [id number] without MRG NABS nontender no HSM no CCE nonfocal Jacob Hinton MD Jun 28, 2018 09:20
[2018-06-28] MEDS ORDERED: Acetaminophen 500mg (ES) tab ORAL PRN (09:38)
[2018-06-28] MEDS: D5 1/2NS w/KCl 20mEq 1,000 ML IV SCH ×3 (09:46→22:30)
[2018-06-28] MEDS: Norco 5mg/325mg tab ORAL PRN ×2 (11:33→16:22)
[2018-06-28 11:52] VITALS: BP 132/76
--- NOTE | 2018-06-28 12:23 | General Surgery Progress Note ---
General Surgery-Progress Note Subjective Procedure Performed Right Total Knee Resurface Symptoms: improved Objective Last 24 Hour Vital Signs Date Time Temp Pulse Resp B/P (MAP) Pulse Ox O2 Delivery O2 Flow Rate FiO2 06/28/18 11:52 100.6 95 20 132/76 (94) 96 06/28/18 09:09 Room Air 21 06/28/18 09:09 Room Air 21 06/28/18 09:00 Room Air 06/28/18 08:00 99.7 108 20 137/67 (90) 98 06/28/18 08:00 21 06/28/18 04:00 98.9 98 20 112/66 (81) 98 06/28/18 04:00 20 06/28/18 00:00 20 06/28/18 00:00 98.3 99 20 102/66 (78) 97 06/27/18 21:00 Room Air 06/27/18 20:27 Room Air 21 06/27/18 20:27 Room Air 21 06/27/18 20:00 20 06/27/18 20:00 99.1 106 20 130/76 (94) 96 06/27/18 17:55 98.6 06/27/18 16:00 20 06/27/18 16:00 98.6 98 20 108/77 (87) 95 I&O Intake and Output 06/27/18 06/28/18 18:59 06:59 Intake Total 1290 ml 392.5 ml Output Total 80 ml 55 ml Balance 1210 ml 337.5 ml Intake Oral 635 ml IV Total 655 ml 392.5 ml Drainage Total 80 ml 55 ml # Voids 2 3 # Bowel Movements 2 Dressing: dry Wound: clean Drains: hemovac Additional Comments Drain output <50 cc. Drain removed. PT / OT continues. Patient will need DME (including front wheel walker, bedside commode and adjustable hospital bed) due to living conditions. Dr. Mary Jane alvarado. Raman Cordova Jun 28, 2018 12:23
[2018-06-28 15:22] LABS: HEMATOCRIT 25.1 % (37.0-47.0); HEMOGLOBIN 7.9 G/DL (12.0-16.0); MEAN CORPUSCULAR VOLUME 83 FL (80-99); PLATELET COUNT 207 K/UL (150-450); RED BLOOD COUNT 3.03 M/UL (4.20-5.40); RED CELL DISTRIBUTION WIDTH 12.2 % (11.6-14.8); WHITE BLOOD COUNT 7.5 K/UL (4.8-10.8)
[2018-06-28 15:26] LABS: NEUTROPHILS % (AUTO) 72.8 % (45.0-75.0)
[2018-06-28 15:27] LABS: BASOPHILS % (AUTO) 0.2 % (0.0-2.0); EOSINOPHILS % (AUTO) 0.3 % (0.0-3.0); MONOCYTES % (AUTO) 6.6 % (1.0-10.0)
[2018-06-28 16:00] VITALS: BP 115/74
[2018-06-28 20:00] VITALS: BP 117/56
[2018-06-28] MEDS: Atorvastatin 20mg tab ORAL SCH (20:52)
[2018-06-28] MEDS: HYDROcodone/Acetamin 10/325 tab ORAL PRN (20:53)
[2018-06-29] VITALS: BP 105/65
[2018-06-29] MEDS: Norco 5mg/325mg tab ORAL PRN ×3 (03:34→13:13)
[2018-06-29 04:00] VITALS: BP 146/81
[2018-06-29 08:00] VITALS: BP 112/72
[2018-06-29] MEDS: Advair 100/50 Inhaler - 14 dose INH SCH ×2 (08:50→18:00)
[2018-06-29] MEDS: Docusate 100mg cap ORAL SCH ×3 (09:14→18:00)
[2018-06-29] MEDS: Docusate Sod/Senna tab ORAL SCH ×2 (09:15→18:00)
[2018-06-29] MEDS: Enoxaparin 40mg Inj SUBQ SCH (09:17)
--- NOTE | 2018-06-29 09:36 | General Surgery Progress Note ---
General Surgery-Progress Note Subjective Procedure Performed Right Total Knee Resurface Symptoms: improved Objective Last 24 Hour Vital Signs Date Time Temp Pulse Resp B/P (MAP) Pulse Ox O2 Delivery O2 Flow Rate FiO2 06/29/18 08:50 Room Air 06/29/18 08:50 Room Air 21 06/29/18 08:00 99.1 99 18 112/72 (85) 99 06/29/18 04:00 99.1 99 20 146/81 (102) 98 06/29/18 00:00 98.7 99 20 105/65 (78) 97 06/28/18 21:30 Room Air 21 06/28/18 21:29 Room Air 21 06/28/18 21:00 Room Air 06/28/18 20:00 99.3 102 20 117/56 (76) 94 06/28/18 16:52 100.6 06/28/18 16:00 100.9 109 19 115/74 (88) 97 06/28/18 11:52 100.6 95 20 132/76 (94) 96 I&O Intake and Output 06/28/18 06/29/18 19:00 07:00 Intake Total 793 ml 780 ml Output Total 150 ml Balance 793 ml 630 ml Intake Oral 118 ml 480 ml IV Total 675 ml 300 ml Output Urine Total 150 ml # Voids 5 # Bowel Movements 1 Dressing: dry Wound: clean Drains: none Laboratory Tests Test 06/28/18 14:40 White Blood Count 7.5 K/UL (4.8-10.8) Red Blood Count 3.03 M/UL (4.20-5.40) L Hemoglobin 7.9 G/DL (12.0-16.0) L Hematocrit 25.1 % (37.0-47.0) L Mean Corpuscular Volume 83 FL (80-99) Mean Corpuscular Hemoglobin 26.0 PG (27.0-31.0) L Mean Corpuscular Hemoglobin Concent 31.3 G/DL (32.0-36.0) L Red Cell Distribution Width 12.2 % (11.6-14.8) Platelet Count 207 K/UL (150-450) Mean Platelet Volume 7.6 FL (6.5-10.1) Neutrophils (%) (Auto) 72.8 % (45.0-75.0) Lymphocytes (%) (Auto) 20.0 % (20.0-45.0) Monocytes (%) (Auto) 6.6 % (1.0-10.0) Eosinophils (%) (Auto) 0.3 % (0.0-3.0) Basophils (%) (Auto) 0.2 % (0.0-2.0) Additional Comments Patient ready for discharge to home AFTER hospital bed is in place in her home. Patient having low grade temps. Dr. Hinton followingRaman Lugo Jun 29, 2018 09:36
[2018-06-29 10:12] LABS: HEMATOCRIT 23.5 % (37.0-47.0); HEMOGLOBIN 7.5 G/DL (12.0-16.0); MEAN CORPUSCULAR VOLUME 83 FL (80-99); PLATELET COUNT 225 K/UL (150-450); RED BLOOD COUNT 2.83 M/UL (4.20-5.40); RED CELL DISTRIBUTION WIDTH 12.5 % (11.6-14.8); WHITE BLOOD COUNT 6.9 K/UL (4.8-10.8)
[2018-06-29 12:00] VITALS: BP 114/79
[2018-06-29 16:00] VITALS: BP 115/54
--- NOTE | 2018-06-29 17:13 | General Progress Note ---
Assessment/Plan Assessment/Plan End Stage Degenerative Joint Disease, Right Knee Right Knee Re-surface hypertension PLAN 1. incentive spirometry 2. Lovenox 3. PT evaluation and therapy 4. ECG and troponin reviewed 5. Pain management 6. discharge once bed is available Subjective Allergies: Coded Allergies: CITRIC ACID (Verified Allergy, Severe, 06/20/18) ITCHING ASPIRIN (Verified Adverse Reaction, Severe, 06/25/18) CANNOT TAKE ASPIRIN DUE TO BARIATRIC SLEEVE SURGERY Subjective plan to dc Objective Last 24 Hour Vital Signs Date Time Temp Pulse Resp B/P (MAP) Pulse Ox O2 Delivery O2 Flow Rate FiO2 06/29/18 16:00 99.2 93 20 115/54 (74) 99 06/29/18 12:00 97.5 105 20 114/79 (91) 96 06/29/18 09:45 99.1 06/29/18 09:00 Room Air 06/29/18 08:50 Room Air 06/29/18 08:50 Room Air 21 06/29/18 08:00 99.1 99 18 112/72 (85) 99 06/29/18 04:00 99.1 99 20 146/81 (102) 98 06/29/18 00:00 98.7 99 20 105/65 (78) 97 06/28/18 21:30 Room Air 21 06/28/18 21:29 Room Air 21 06/28/18 21:00 Room Air 06/28/18 20:00 99.3 102 20 117/56 (76) 94 Intake and Output 06/28/18 06/29/18 18:59 06:59 Intake Total 718 ml 855 ml Output Total 150 ml Balance 718 ml 705 ml Intake Oral 118 ml 480 ml IV Total 600 ml 375 ml Output Urine Total 150 ml # Voids 5 # Bowel Movements 1 Laboratory Tests 06/29/18 09:50: White Blood Count 6.9, Red Blood Count 2.83L, Hemoglobin 7.5L, Hematocrit 23.5L , Mean Corpuscular Volume 83, Mean Corpuscular Hemoglobin 26.7L, Mean Corpuscular Hemoglobin Concent 32.0, Red Cell Distribution Width 12.5, Platelet Count 225, Mean Platelet Volume 6.5, Neutrophils (%) (Auto) , Lymphocytes (%) ( Auto) , Monocytes (%) (Auto) , Eosinophils (%) (Auto) , Basophils (%) (Auto) , Differential Total Cells Counted 100, Neutrophils % (Manual) 80H, Lymphocytes % (Manual) 14L, Monocytes % (Manual) 6, Eosinophils % (Manual) 0, Basophils % ( Manual) 0, Band Neutrophils 0, Platelet Estimate Adequate, Platelet Morphology Normal, Polychromasia Occasional, Hypochromasia 1+ Height (Feet): 5 Height (Inches): 6.00 Weight (Pounds): 248 Objective WDWN NAD clear breath sounds bilaterally without rhonchi or wheeze [id number] without MRG NABS nontender no HSM no CCE nonfocal Jacob Hinton MD Jun 29, 2018 17:13
[2018-06-29] MEDS: D5 1/2NS w/KCl 20mEq 1,000 ML IV SCH (17:35)
[2018-06-29] MEDS: HYDROcodone/Acetamin 10/325 tab ORAL PRN ×2 (17:36→21:37)
[2018-06-29 20:00] VITALS: BP 127/72
[2018-06-29] MEDS: Atorvastatin 20mg tab ORAL SCH (21:38)
[2018-06-30] VITALS (7 sets, daily range): BP systolic 104–130; BP diastolic 66–88
[2018-06-30] MEDS: D5 1/2NS w/KCl 20mEq 1,000 ML IV SCH ×3 (00:43→22:21)
[2018-06-30] MEDS: HYDROcodone/Acetamin 10/325 tab ORAL PRN ×5 (02:14→22:19)
[2018-06-30] MEDS: Advair 100/50 Inhaler - 14 dose INH SCH ×2 (08:50→18:00)
[2018-06-30] MEDS: Docusate Sod/Senna tab ORAL SCH ×2 (08:53→17:55)
[2018-06-30] MEDS: Docusate 100mg cap ORAL SCH ×3 (08:53→17:55)
[2018-06-30] MEDS: Enoxaparin 40mg Inj SUBQ SCH (08:56)
[2018-06-30 09:01] LABS: BASOPHILS % (AUTO) 0.3 % (0.0-2.0); EOSINOPHILS % (AUTO) 0.9 % (0.0-3.0); HEMATOCRIT 26.3 % (37.0-47.0); HEMOGLOBIN 8.5 G/DL (12.0-16.0); LYMPHOCYTES % (AUTO) 22.5 % (20.0-45.0); MEAN CORPUSCULAR VOLUME 82 FL (80-99); NEUTROPHILS % (AUTO) 64.3 % (45.0-75.0); PLATELET COUNT 248 K/UL (150-450); RED BLOOD COUNT 3.19 M/UL (4.20-5.40); RED CELL DISTRIBUTION WIDTH 12.2 % (11.6-14.8); WHITE BLOOD COUNT 5.8 K/UL (4.8-10.8)
--- NOTE | 2018-06-30 19:50 | Pulmonology Progress Note ---
Assessment/Plan Assessment/Plan Pulmonary Progtress Note Assessment/Plan End Stage Degenerative Joint Disease, Right Knee Right Knee Re-surface hypertension PLAN 1. incentive spirometry 2. Lovenox 3. PT evaluation and therapy 4. ECG and troponin reviewed 5. Pain management 6. discharge once bed is available Subjective Allergies: Coded Allergies: CITRIC ACID (Verified Allergy, Severe, 06/20/18) ITCHING ASPIRIN (Verified Adverse Reaction, Severe, 06/25/18) CANNOT TAKE ASPIRIN DUE TO BARIATRIC SLEEVE SURGERY Subjective plan to dc Objective Vital Signs Noted Height (Feet): 5 Height (Inches): 6.00 Weight (Pounds): 248 Objective WDWN NAD clear breath sounds bilaterally without rhonchi or wheeze [id number] without MRG NABS nontender no HSM no CCE nonfocal Laboratory Tests 06/29/18 09:50: White Blood Count 6.9, Red Blood Count 2.83L, Hemoglobin 7.5L, Hematocrit 23.5L , Mean Corpuscular Volume 83, Mean Corpuscular Hemoglobin 26.7L, Mean Corpuscular Hemoglobin Concent 32.0, Red Cell Distribution Width 12.5, Platelet Count 225, Mean Platelet Volume 6.5, Neutrophils (%) (Auto) , Lymphocytes (%) ( Auto) , Monocytes (%) (Auto) , Eosinophils (%) (Auto) , Basophils (%) (Auto) , Differential Total Cells Counted 100, Neutrophils % (Manual) 80H, Lymphocytes % (Manual) 14L, Monocytes % (Manual) 6, Eosinophils % (Manual) 0, Basophils % ( Manual) 0, Band Neutrophils 0, Platelet Estimate Adequate, Platelet Morphology Normal, Polychromasia Occasional, Hypochromasia 1+ Subjective ROS Limited/Unobtainable: No Allergies: Coded Allergies: CITRIC ACID (Verified Allergy, Severe, 06/20/18) ITCHING ASPIRIN (Verified Adverse Reaction, Severe, 06/25/18) CANNOT TAKE ASPIRIN DUE TO BARIATRIC SLEEVE SURGERY Objective Last 24 Hour Vital Signs Date Time Temp Pulse Resp B/P (MAP) Pulse Ox O2 Delivery O2 Flow Rate FiO2 06/30/18 19:24 Room Air 21 06/30/18 19:24 Room Air 21 06/30/18 16:00 99.0 87 20 128/72 (90) 96 06/30/18 13:46 98.2 06/30/18 12:00 98.2 87 15 130/88 (102) 100 06/30/18 09:00 Room Air 06/30/18 08:56 Room Air 21 06/30/18 08:56 Room Air 21 06/30/18 08:50 97.2 85 16 113/71 (85) 97 06/30/18 04:00 97.8 95 19 115/66 (82) 98 06/30/18 00:00 98.4 90 18 104/71 (82) 97 06/29/18 21:00 Room Air 06/29/18 20:00 99.2 98 19 127/72 (90) 97 Intake and Output 06/29/18 06/30/18 18:59 06:59 Intake Total 1050 ml 900 ml Balance 1050 ml 900 ml Intake Oral 600 ml IV Total 450 ml 900 ml # Voids 2 3 Laboratory Tests 06/30/18 08:30: White Blood Count 5.8, Red Blood Count 3.19L, Hemoglobin 8.5L, Hematocrit 26.3L , Mean Corpuscular Volume 82, Mean Corpuscular Hemoglobin 26.6L, Mean Corpuscular Hemoglobin Concent 32.3, Red Cell Distribution Width 12.2, Platelet Count 248, Mean Platelet Volume 6.1L, Neutrophils (%) (Auto) 64.3, Lymphocytes ( %) (Auto) 22.5, Monocytes (%) (Auto) 12.0H, Eosinophils (%) (Auto) 0.9, Basophils (%) (Auto) 0.3 Current Medications Medications (Trade) Dose Ordered Sig/Vidhya Route PRN Reason Start Time Stop Time Status Last Admin Dose Admin Acetaminophen (Tylenol) 650 mg Q4H PRN ORAL temp>100.2/headache/MILD PAIN 06/28/18 11:15 07/25/18 13:59 Acetaminophen/ Hydrocodone Bitart ([place] 10/325) 1 tab Q4H PRN ORAL Severe Pain (Pain Scale 7-10) 06/28/18 11:00 07/05/18 10:59 06/30/18 17:51 Acetaminophen/ Hydrocodone Bitart ([place] 5/325) 1 tab Q4H PRN ORAL Moderate Pain (Pain Scale 4-6) 06/28/18 11:00 07/05/18 10:59 06/29/18 13:13 Atorvastatin Calcium (Lipitor) 20 mg QHS ORAL 06/25/18 21:00 07/25/18 20:59 06/29/18 21:38 Dextrose/ Electrolytes 1,000 ml @ 75 mls/hr [id number] IV 06/25/18 14:30 07/25/18 14:29 06/30/18 09:03 Diphenhydramine HCl (Benadryl) 25 mg Q6H PRN ORAL Itching 06/28/18 06:30 07/28/18 06:29 06/28/18 06:30 Docusate Sodium (Colace) 100 mg THREE TIMES A DAY ORAL 06/25/18 14:00 07/25/18 13:59 06/30/18 08:53 Enoxaparin Sodium (Lovenox) 40 mg DAILY SUBQ 06/26/18 09:00 07/26/18 08:59 06/30/18 08:56 Hydroxyzine HCl (Vistaril) 10 mg DAILY ORAL 06/26/18 09:00 07/26/18 08:59 06/30/18 08:53 Magnesium Hydroxide (Mom) 30 ml DAILYPRN PRN ORAL Constipation 06/25/18 14:00 07/25/18 13:59 06/27/18 12:27 Ondansetron HCl (Zofran) 4 mg Q6H PRN IVP Nausea & Vomiting 06/25/18 14:00 07/25/18 13:59 06/26/18 08:34 Salmeterol Xinafoate/ Fluticasone (Advair 100/50 Diskus) 1 puffs BID INH 06/25/18 18:00 07/25/18 17:59 Senna/Docusate Sodium (Caitlyn-Colace) 1 tab TWICE A DAY ORAL 06/25/18 18:00 07/25/18 17:59 06/30/18 08:53 Temazepam (Restoril) 7.5 mg HSPRN PRN ORAL Insomnia 06/25/18 21:00 07/02/18 20:59 Mike Brown MD Jun 30, 2018 19:50
[2018-06-30] MEDS: Atorvastatin 20mg tab ORAL SCH (20:55)
[2018-07-01] VITALS: BP 128/91
[2018-07-01] MEDS: HYDROcodone/Acetamin 10/325 tab ORAL PRN ×4 (03:51→17:10)
[2018-07-01 04:00] VITALS: BP 114/64
[2018-07-01 08:00] VITALS: BP 133/89
[2018-07-01] MEDS: Docusate 100mg cap ORAL SCH ×3 (08:27→17:10)
[2018-07-01] MEDS: Docusate Sod/Senna tab ORAL SCH ×2 (08:27→17:10)
[2018-07-01] MEDS: Enoxaparin 40mg Inj SUBQ SCH (08:35)
[2018-07-01] MEDS ORDERED: NS 275ml ONE (09:41)
[2018-07-01] MEDS: Advair 100/50 Inhaler - 14 dose INH SCH ×2 (09:46→18:35)
--- NOTE | 2018-07-01 11:56 | Pulmonology Progress Note ---
Assessment/Plan Assessment/Plan Pulmonary Progtress Note Assessment/Plan End Stage Degenerative Joint Disease, Right Knee Right Knee Re-surface hypertension PLAN 1. incentive spirometry 2. Lovenox 3. PT evaluation and therapy 4. ECG and troponin reviewed 5. Pain management 6. discharge once bed is available Subjective Allergies: Coded Allergies: CITRIC ACID (Verified Allergy, Severe, 06/20/18) ITCHING ASPIRIN (Verified Adverse Reaction, Severe, 06/25/18) CANNOT TAKE ASPIRIN DUE TO BARIATRIC SLEEVE SURGERY Subjective plan to dc Objective Vital Signs Noted Height (Feet): 5 Height (Inches): 6.00 Weight (Pounds): 248 Objective WDWN NAD clear breath sounds bilaterally without rhonchi or wheeze [id number] without MRG NABS nontender no HSM no CCE nonfocal Laboratory Tests 06/29/18 09:50: White Blood Count 6.9, Red Blood Count 2.83L, Hemoglobin 7.5L, Hematocrit 23.5L , Mean Corpuscular Volume 83, Mean Corpuscular Hemoglobin 26.7L, Mean Corpuscular Hemoglobin Concent 32.0, Red Cell Distribution Width 12.5, Platelet Count 225, Mean Platelet Volume 6.5, Neutrophils (%) (Auto) , Lymphocytes (%) ( Auto) , Monocytes (%) (Auto) , Eosinophils (%) (Auto) , Basophils (%) (Auto) , Differential Total Cells Counted 100, Neutrophils % (Manual) 80H, Lymphocytes % (Manual) 14L, Monocytes % (Manual) 6, Eosinophils % (Manual) 0, Basophils % ( Manual) 0, Band Neutrophils 0, Platelet Estimate Adequate, Platelet Morphology Normal, Polychromasia Occasional, Hypochromasia 1+ Subjective ROS Limited/Unobtainable: No Allergies: Coded Allergies: CITRIC ACID (Verified Allergy, Severe, 06/20/18) ITCHING ASPIRIN (Verified Adverse Reaction, Severe, 06/25/18) CANNOT TAKE ASPIRIN DUE TO BARIATRIC SLEEVE SURGERY Objective Last 24 Hour Vital Signs Date Time Temp Pulse Resp B/P (MAP) Pulse Ox O2 Delivery O2 Flow Rate FiO2 07/01/18 09:46 Room Air 21 07/01/18 09:46 Room Air 21 07/01/18 09:00 Room Air 07/01/18 08:59 97.4 07/01/18 08:00 97.4 84 18 133/89 (104) 98 12/2/18 04:00 98.2 82 18 114/64 (81) 98 07/01/18 00:00 98.6 85 20 128/91 (103) 98 06/30/18 21:00 Room Air 06/30/18 20:00 99.0 85 18 111/67 (82) 98 06/30/18 19:24 Room Air 21 06/30/18 19:24 Room Air 21 06/30/18 16:00 99.0 87 20 128/72 (90) 96 06/30/18 12:00 98.2 87 15 130/88 (102) 100 Intake and Output 06/30/18 07/01/18 19:00 07:00 Intake Total 8100 ml Balance 8100 ml IV Total 8100 ml # Voids 3 4 Current Medications Medications (Trade) Dose Ordered Sig/Vidhya Route PRN Reason Start Time Stop Time Status Last Admin Dose Admin Acetaminophen (Tylenol) 650 mg Q4H PRN ORAL temp>100.2/headache/MILD PAIN 06/28/18 11:15 07/25/18 13:59 Acetaminophen/ Hydrocodone Bitart ([place] 10/325) 1 tab Q4H PRN ORAL Severe Pain (Pain Scale 7-10) 06/28/18 11:00 07/05/18 10:59 07/01/18 08:29 Acetaminophen/ Hydrocodone Bitart ([place] 5/325) 1 tab Q4H PRN ORAL Moderate Pain (Pain Scale 4-6) 06/28/18 11:00 07/05/18 10:59 06/29/18 13:13 Atorvastatin Calcium (Lipitor) 20 mg QHS ORAL 06/25/18 21:00 07/25/18 20:59 06/30/18 20:55 Dextrose/ Electrolytes 1,000 ml @ 75 mls/hr [id number] IV 06/25/18 14:30 07/25/18 14:29 06/30/18 22:21 Diphenhydramine HCl (Benadryl) 25 mg Q6H PRN ORAL Itching 06/28/18 06:30 07/28/18 06:29 06/30/18 19:52 Docusate Sodium (Colace) 100 mg THREE TIMES A DAY ORAL 06/25/18 14:00 07/25/18 13:59 07/01/18 08:27 Enoxaparin Sodium (Lovenox) 40 mg DAILY SUBQ 06/26/18 09:00 07/26/18 08:59 07/01/18 08:35 Hydroxyzine HCl (Vistaril) 10 mg DAILY ORAL 06/26/18 09:00 07/26/18 08:59 06/30/18 08:53 Magnesium Hydroxide (Mom) 30 ml DAILYPRN PRN ORAL Constipation 06/25/18 14:00 07/25/18 13:59 06/27/18 12:27 Ondansetron HCl (Zofran) 4 mg Q6H PRN IVP Nausea & Vomiting 06/25/18 14:00 07/25/18 13:59 06/26/18 08:34 Salmeterol Xinafoate/ Fluticasone (Advair 100/50 Diskus) 1 puffs BID INH 06/25/18 18:00 07/25/18 17:59 Senna/Docusate Sodium (Caitlyn-Colace) 1 tab TWICE A DAY ORAL 06/25/18 18:00 07/25/18 17:59 07/01/18 08:27 Temazepam (Restoril) 7.5 mg HSPRN PRN ORAL Insomnia 06/25/18 21:00 07/02/18 20:59 Mike Brown MD Jul 01, 2018 11:56
[2018-07-01 12:00] VITALS: BP 109/68
[2018-07-01 16:00] VITALS: BP 139/85
[2018-07-01 20:00] VITALS: BP 104/69
[2018-07-01] MEDS: Atorvastatin 20mg tab ORAL SCH (21:07)
[2018-07-01] MEDS: Norco 5mg/325mg tab ORAL PRN (21:07)
[2018-07-02] VITALS: BP 116/56
[2018-07-02] MEDS: HYDROcodone/Acetamin 10/325 tab ORAL PRN ×5 (02:53→22:53)
[2018-07-02 04:00] VITALS: BP 120/70
[2018-07-02 08:00] VITALS: BP 118/74
[2018-07-02] MEDS: Advair 100/50 Inhaler - 14 dose INH SCH ×2 (08:07→18:00)
--- NOTE | 2018-07-02 08:27 | General Progress Note ---
Assessment/Plan Assessment/Plan End Stage Degenerative Joint Disease, Right Knee Right Knee Re-surface hypertension PLAN 1. incentive spirometry 2. Lovenox 3. PT evaluation and therapy 4. ECG and troponin reviewed 5. Pain management 6. discharge once bed is available Subjective Allergies: Coded Allergies: CITRIC ACID (Verified Allergy, Severe, 06/20/18) ITCHING ASPIRIN (Verified Adverse Reaction, Severe, 06/25/18) CANNOT TAKE ASPIRIN DUE TO BARIATRIC SLEEVE SURGERY Subjective plan to dc Objective Last 24 Hour Vital Signs Date Time Temp Pulse Resp B/P (MAP) Pulse Ox O2 Delivery O2 Flow Rate FiO2 07/02/18 08:07 Room Air 07/02/18 08:06 Room Air 07/02/18 08:00 98.6 88 20 118/74 (89) 98 07/02/18 04:00 97.9 80 20 120/70 (87) 98 07/02/18 00:00 98.1 85 19 116/56 (76) 99 07/01/18 21:00 Room Air 07/01/18 20:00 98.2 89 18 104/69 (81) 98 07/01/18 19:35 Room Air 21 07/01/18 19:35 81 18 98 Room Air 21 07/01/18 17:40 99.1 07/01/18 16:00 99.1 97 16 139/85 (103) 100 07/01/18 12:00 98.6 81 18 109/68 (82) 100 07/01/18 09:46 Room Air 21 07/01/18 09:46 Room Air 21 07/01/18 09:00 Room Air Intake and Output 07/01/18 07/02/18 19:00 07:00 Intake Total 800 ml Balance 800 ml Intake Oral 800 ml # Voids 10 Height (Feet): 5 Height (Inches): 6.00 Weight (Pounds): 248 Objective WDWN NAD clear breath sounds bilaterally without rhonchi or wheeze [id number] without MRG NABS nontender no HSM no CCE nonfocal Jacob Hinton MD Jul 02, 2018 08:27
[2018-07-02] MEDS: Docusate Sod/Senna tab ORAL SCH ×2 (08:53→18:26)
[2018-07-02] MEDS: Docusate 100mg cap ORAL SCH ×3 (08:53→18:26)
[2018-07-02] MEDS: Enoxaparin 40mg Inj SUBQ SCH (08:54)
[2018-07-02 12:00] VITALS: BP 110/72
[2018-07-02 16:00] VITALS: BP 125/78
[2018-07-02 20:12] VITALS: BP 128/83
[2018-07-02] MEDS: Atorvastatin 20mg tab ORAL SCH (20:28)
[2018-07-03] VITALS: BP 133/79
[2018-07-03 04:00] VITALS: BP 114/63
[2018-07-03] MEDS: HYDROcodone/Acetamin 10/325 tab ORAL PRN ×4 (07:25→23:12)
[2018-07-03 08:00] VITALS: BP 116/68
[2018-07-03] MEDS: Advair 100/50 Inhaler - 14 dose INH SCH ×2 (08:07→18:00)
[2018-07-03] MEDS: Docusate 100mg cap ORAL SCH ×3 (09:02→18:02)
[2018-07-03] MEDS: Docusate Sod/Senna tab ORAL SCH ×2 (09:02→18:02)
[2018-07-03] MEDS: Enoxaparin 40mg Inj SUBQ SCH (09:05)
[2018-07-03 12:00] VITALS: BP 129/82
[2018-07-03 16:00] VITALS: BP 137/89
--- NOTE | 2018-07-03 19:20 | General Progress Note ---
Assessment/Plan Assessment/Plan End Stage Degenerative Joint Disease, Right Knee Right Knee Re-surface hypertension PLAN 1. incentive spirometry 2. Lovenox 3. PT evaluation and therapy 4. ECG and troponin reviewed 5. Pain management 6. discharge once bed is available Subjective Allergies: Coded Allergies: CITRIC ACID (Verified Allergy, Severe, 06/20/18) ITCHING ASPIRIN (Verified Adverse Reaction, Severe, 06/25/18) CANNOT TAKE ASPIRIN DUE TO BARIATRIC SLEEVE SURGERY Subjective plan to dc Objective Last 24 Hour Vital Signs Date Time Temp Pulse Resp B/P (MAP) Pulse Ox O2 Delivery O2 Flow Rate FiO2 07/03/18 16:13 98.6 07/03/18 16:00 98.6 85 19 137/89 (105) 99 07/03/18 12:00 98.6 77 20 129/82 (98) 97 07/03/18 08:20 Room Air 07/03/18 08:00 98.8 85 19 116/68 (84) 97 07/03/18 07:55 Room Air 21 07/03/18 07:55 86 95 Room Air 07/03/18 04:00 98.3 76 19 114/63 (80) 98 07/03/18 00:00 98.6 92 19 133/79 (97) 95 07/02/18 22:31 Room Air 21 07/02/18 22:29 Room Air 21 07/02/18 21:00 Room Air 07/02/18 20:12 98.4 88 18 128/83 (98) 95 Intake and Output 07/02/18 07/03/18 19:00 07:00 Intake Total 590 ml 360 ml Balance 590 ml 360 ml Intake Oral 590 ml 360 ml # Voids 2 2 Height (Feet): 5 Height (Inches): 6.00 Weight (Pounds): 248 Objective WDWN NAD clear breath sounds bilaterally without rhonchi or wheeze [id number] without MRG NABS nontender no HSM no CCE nonfocal Jacob Hinton MD Jul 03, 2018 19:20
[2018-07-03 20:00] VITALS: BP 123/77
[2018-07-03] MEDS: Atorvastatin 20mg tab ORAL SCH (21:12)
[2018-07-03] MEDS: Milk of Magnesia 30ml Ud ORAL PRN (22:00)
[2018-07-04] VITALS: BP 125/71
[2018-07-04] MEDS: HYDROcodone/Acetamin 10/325 tab ORAL PRN ×3 (03:16→15:09)
[2018-07-04 04:00] VITALS: BP 124/64
[2018-07-04 08:00] VITALS: BP 121/72
[2018-07-04] MEDS: Advair 100/50 Inhaler - 14 dose INH SCH (08:45)
[2018-07-04] MEDS: Docusate 100mg cap ORAL SCH ×2 (09:00→12:23)
[2018-07-04] MEDS: Enoxaparin 40mg Inj SUBQ SCH (09:00)
[2018-07-04] MEDS: Docusate Sod/Senna tab ORAL SCH (09:00)
--- NOTE | 2018-07-04 10:01 | General Progress Note ---
Assessment/Plan Assessment/Plan End Stage Degenerative Joint Disease, Right Knee Right Knee Re-surface hypertension PLAN 1. incentive spirometry 2. Lovenox 3. PT evaluation and therapy 4. ECG and troponin reviewed 5. Pain management 6. discharge once bed is available Subjective Allergies: Coded Allergies: CITRIC ACID (Verified Allergy, Severe, 06/20/18) ITCHING ASPIRIN (Verified Adverse Reaction, Severe, 06/25/18) CANNOT TAKE ASPIRIN DUE TO BARIATRIC SLEEVE SURGERY Subjective plan to dc bed coming today Objective Last 24 Hour Vital Signs Date Time Temp Pulse Resp B/P (MAP) Pulse Ox O2 Delivery O2 Flow Rate FiO2 07/04/18 08:45 Room Air 21 07/04/18 08:45 Room Air 21 07/04/18 08:09 Room Air 07/04/18 08:00 97.9 85 16 121/72 (88) 100 07/04/18 04:00 98.0 73 19 124/64 (84) 97 07/04/18 00:00 99.4 76 19 125/71 (89) 95 07/03/18 21:00 Room Air 07/03/18 20:00 Room Air 21 07/03/18 20:00 98.2 81 19 123/77 (92) 97 07/03/18 20:00 Room Air 21 07/03/18 16:13 98.6 07/03/18 16:00 98.6 85 19 137/89 (105) 99 07/03/18 12:00 98.6 77 20 129/82 (98) 97 Intake and Output 07/03/18 07/04/18 19:00 07:00 Intake Total 708 ml 400 ml Balance 708 ml 400 ml Intake Oral 708 ml 400 ml # Voids 2 3 Height (Feet): 5 Height (Inches): 6.00 Weight (Pounds): 248 Objective WDWN NAD clear breath sounds bilaterally without rhonchi or wheeze [id number] without MRG NABS nontender no HSM no CCE nonfocal aJcob Hinton MD Jul 04, 2018 10:01
[2018-07-04 12:00] VITALS: BP 115/76
--- NOTE | 2018-07-05 17:21 | Discharge Summary ---
Discharge Summary Discharge Summary _ DATE OF ADMISSION: 06/25/2018 DATE OF DISCHARGE: 07/04/2018 SURGEON: Dr. Raman Bingham BRIEF HOSPITAL COURSE: Patient is a 57-year-old female, who was injured while working, when she slipped and fell. Date of injury was 09/20/2016. As a result, she injured her right knee. 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 She was admitted and underwent total knee resurfacing arthroplasty. Postoperatively she was admitted for postop care. She was given pain management. She was placed on Lovenox for DVT prophylaxis. She was given incentive spirometry. She had episodes of low-grade fever. She eventually defervesced. She underwent PT evaluation and therapy. She was eventually discharged home, when DME was delivered to patient's home. 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 POSTOPERATIVE DIAGNOSIS: Tricompartmental traumatic arthritis, right knee with significant valgus and external rotational deformity lacking 10 degrees of flexion and 10 degrees of extension. OPERATIVE PROCEDURE: Total knee resurfacing arthroplasty using a Natural-Knee with an ingrowth size 2 femoral component and a size 2 tibial base plate with a congruent 9 mm polyethylene insert. Patellar resurfacing was with a 7 mm all polyethylene size 0 patellar component with cement. The patient also had a lateral capsular and ligamentous release and rebalancing with patella realignment. DISPOSITION: Patient was discharged home. DISCHARGE MEDICATIONS: Refer to Discharge Medication List. DISCHARGE INSTRUCTIONS: Follow-up in 1-2 weeks. I have been assigned to dictate discharge summary on this account, and I was not involved in the patient's management. Aracely Ray NP Jul 05, 2018 17:21
== END 2018-07-04 16:00 | disposition home or self-care (01) | DRG 470 ==
LOC: SDSOVERFLO 05:17 → 3E 11:53
PROC: 0SRC0J9 Replacement of Right Knee Joint with Synthetic Substitute, Cemented, Open Approach (ICD-10-PCS; principal; 2018-06-25 07:30)
DX: M17.31 Unilateral post-traumatic osteoarthritis, right knee (principal); J45.909 Unspecified asthma, uncomplicated; E66.3 Overweight; R50.82 Postprocedural fever; M21.061 Valgus deformity, not elsewhere classified, right knee; I10 Essential (primary) hypertension
CPT/HCPCS: 36415; 80048; 81025; 84484; 85007; 85025; 86850; 86900; 86901; 86920; 87081; 93005; 94003; 94150; 94640; C9399; J2250; J2405